=== PATIENT | male | born 1940 | race Caucasian/White ===

== ENCOUNTER → 2016-05-03 | Outpatient (CLI) | payer OTHER, MEDICARE | LOC: FIMAGING 15:54 | PROVIDERS: ATTEND Physician Assistant | DX: M12.88 Other specific arthropathies, not elsewhere classified, other specified site (principal); M50.322 Other cervical disc degeneration at C5-C6 level; M48.02 Spinal stenosis, cervical region; G95.29 Other cord compression; M99.71 Connective tissue and disc stenosis of intervertebral foramina of cervical region ==

== ENCOUNTER → 2016-12-29 | Outpatient (CLI) | payer OTHER, MEDICARE | LOC: FIMAGING 19:11 | PROVIDERS: ATTEND Physician Assistant | DX: M47.26 Other spondylosis with radiculopathy, lumbar region (principal); M48.061 Spinal stenosis, lumbar region without neurogenic claudication ==

== ENCOUNTER → 2017-08-13 | Outpatient (CLI) | payer OTHER, MEDICARE | LOC: FIMAGING 18:29 | PROVIDERS: ATTEND Physician Assistant | DX: M13.862 Other specified arthritis, left knee (principal); M23.332 Other meniscus derangements, other medial meniscus, left knee; M23.342 Other meniscus derangements, anterior horn of lateral meniscus, left knee; M23.352 Other meniscus derangements, posterior horn of lateral meniscus, left knee; M23.42 Loose body in knee, left knee; M23.8X2 Other internal derangements of left knee ==

== ENCOUNTER → 2018-02-18 | Outpatient (CLI) | payer OTHER, MEDICARE | LOC: FIMAGING 15:05 | PROVIDERS: ATTEND Orthopaedic Surgery | DX: Z01.818 Encounter for other preprocedural examination (principal); M17.12 Unilateral primary osteoarthritis, left knee | CPT/HCPCS: 36415-PO ==

== ENCOUNTER 2018-03-08 05:53 | Inpatient (IN) | payer OTHER, MEDICARE ==
[2018-03-08] MEDS ORDERED: ROPIVACAINE 0.2% 80 MG, EPINEPHrine 0.2 MG in SYRINGE 0 ML IU ONE (06:00)
[2018-03-08] MEDS ORDERED: TRANEXAMIC ACID 3,000 MG in NS (SYRINGE) 50 ML IRR ONE (06:00)
[2018-03-08] MEDS ORDERED: ceFAZolin 2 GM/DEXTROSE 100 ML IV ONE (06:02)
[2018-03-08] MEDS ORDERED: FAMOTIDINE 20 MG TAB PO ONE (06:02)
[2018-03-08] MEDS ORDERED: ACETAMINOPHEN 325 MG TAB PO ONE (06:02)
[2018-03-08] MEDS ORDERED: LR 1,000 ML IV ONE (06:03)
--- NOTE | 2018-03-08 06:24 | PDHPUP ---
History & Physical Update H&P update statement: This history and physical update is based on an assessment of the patient which was completed after admission or registration (within 24 hours), but prior to the surgery/procedure. H&P update: H&P reviewed & patient examined, no change in patient's condition since H&P completed
[2018-03-08] MEDS ORDERED: TRANEXAMIC ACID 3,000 MG/50 ML BAG IRR ONE (06:39)
--- NOTE | 2018-03-08 06:42 | PDANEPAE ---
ANE Past Medical History - Cardiovascular History Hx Hypertension: Yes Hx Arrhythmias: No Hx Chest Pain: No Hx Coronary Artery / Peripheral Vascular Disease: Yes Hx CHF / Valvular Disease: No Hx Palpitations: No Cardiovascular History Comment: stent placed after LA 2001 - Pulmonary History Hx COPD: No Hx Asthma/Reactive Airway Disease: No Hx Recent Upper Respiratory Infection: No Hx Oxygen in Use at Home: No Hx Sleep Apnea: No Sleep Apnea Screening Result - Last Documented: Positive - Neurologic History Hx Cerebrovascular Accident: No Hx Seizures: No Hx Dementia: No - Endocrine History Hx Diabetes: No Hypothyroid: No Hyperthyroid: No Obesity: yes, mild Endocrine History Comment: PRE-DIABETIC, NO MEDS - Renal History Hx Renal Disorders: No - Liver History Hx Hepatic Disorders: No - Neurological & Psychiatric Hx Hx Neurological and Psychiatric Disorders: Yes Neurological / Psychiatric History Comment: neck causes numbness to both hands - Cancer History Hx Cancer: No Cancer History Comment: pre-cancerous prostate - Congenital Disorder History Hx Congenital Disorders: Yes Congenital History Comment: malignant hyperthermia - GI History GERD: no Hx Gastrointestinal Disorders: No Gastrointestinal History Comment: colonoscopy polyp removed - Other Health History Other Health History: full dentures - Chronic Pain History Chronic Pain: Yes (neck) - Surgical History Prior Surgeries: prostate 2010. back injections ANE Review of Systems Review of Systems: - Exercise capacity Exercise capacity: limited by disability METS (RN): 4 METS ANE Patient History - Allergies Allergies/Adverse Reactions: No Known Allergies Allergy (Verified 03/08/18 06:04) - Home Medications Home Medications: Gabapentin [Neurontin 300 MG (*)] 300 mg PO DAILY 09/28/15 [Last Taken 03/07/18] Lisinopril/Hctz 20/12.5MG [Zestoretic/Prinzide 20/12.5MG (*)] 1 ea PO DAILY [Last Taken Unknown] Lovastatin 20 mg PO DAILY@18 09/28/15 [Last Taken 03/07/18] Metoprolol Tartrate [Lopressor 100 mg (*)] 100 mg PO BID 09/28/15 [Last Taken ] Acetaminophen [Tylenol ES 500 mg (*)] 1,000 mg PO Q6 PRN 02/15/18 [Last Taken ] Acetaminophen/Diphenhydramine [Acetaminophen Pm Caplet] 2 tab PO HS 02/15/18 [ Last Taken 03/07/18] Duloxetine HCl [Cymbalta] 30 mg PO BID 02/15/18 [Last Taken 03/07/18] Gabapentin [Neurontin 300 MG (*)] 600 mg PO HS 02/15/18 [Last Taken 03/07/18] amLODIPine BESYLATE [Amlodipine Besylate] 5 mg PO HS 02/15/18 [Last Taken ] - NPO status NPO Since - Liquids (Date): 03/07/18 NPO Since - Liquids (Time): 18:00 NPO Since - Solids (Date): 03/07/18 NPO Since - Solids (Time): 18:00 - Anes Hx Anes Hx: slow to awaken from anesthesia - Smoking Hx Smoking Status: Former smoker Marijuana use: No - Alcohol Use Alcohol Use: Occasionally - Family Anes Hx Family Anes Hx: malignant hyperthermia Family Hx Anesthesia Complications: as above ANE Labs/Vital Signs - Vital Signs Blood Pressure: 134/78 Heart Rate: 70 Respiratory Rate: 16 O2 Sat (%): 93 Height: 175.26 cm Weight: 90.718 kg ANE Physical Exam - Airway Neck exam: decreased ROM Mallampati Score: Class 3 Mouth exam: dentures - Pulmonary Pulmonary: no rales or rhonchi, reduced air movement - Cardiovascular Cardiovascular: regular rate and rhythym, no murmur, rub, or gallop (no carotid bruits) - ASA Status ASA Status: III ANE Anesthesia Plan Anesthesia Plan: MAC, spinal Total IV Anesthesia: No
[2018-03-08] MEDS ORDERED: MIDAZOLAM 2 MG/2 ML VIAL ONE (06:55)
[2018-03-08] MEDS ORDERED: fentaNYL 100 MCG/2 ML INJ ONE (06:57)
[2018-03-08] MEDS ORDERED: PROPOFOL/EMULSION 500 MG/50 ML BOTTLE IV ONE (06:57)
[2018-03-08] MEDS ORDERED: BUPIVACAINE/DEXTROSE 7.5MG/ML 2 ML SPINAL AMP SP ONE (06:58)
[2018-03-08] MEDS ORDERED: MIDAZOLAM 2 MG/2 ML VIAL IVP ONE (07:03)
[2018-03-08] MEDS ORDERED: ePHEDrine SULFATE 25 MG/5 ML SYR ONE ×2 (07:29→07:38)
[2018-03-08] MEDS ORDERED: PROMETHAZINE HCL 25 MG/ML INJ IVP PRN ×2 (07:38→08:45)
[2018-03-08] MEDS ORDERED: ONDANSETRON 4 MG/2 ML VIAL IVP PRN ×2 (07:38→08:45)
[2018-03-08] MEDS ORDERED: NS 500 ML IV PRN (07:38)
[2018-03-08] MEDS ORDERED: PHENYLEPHRINE HCL 100 MCG/ML SYR IVP PRN (07:38)
[2018-03-08] MEDS ORDERED: NALOXONE HCL 0.4 MG/ML INJ IVP PRN (07:38)
[2018-03-08] MEDS ORDERED: PHENYLEPHRINE HCL 100 MCG/ML SYR ONE (07:53)
[2018-03-08] MEDS ORDERED: ROPIVACAINE HCL 100 MG/20 ML INJ ONE (08:31)
[2018-03-08] MEDS ORDERED: BISACODYL 10 MG SUPP PR PRN (08:45)
[2018-03-08] MEDS ORDERED: LACTULOSE 20 GM/30 ML UDCUP PO PRN (08:45)
[2018-03-08] MEDS ORDERED: NS 1,000 ML IV SCH (08:45)
[2018-03-08] MEDS ORDERED: DIPHENOXYLATE/ATROPINE LOMOTIL 1 TAB PO PRN (08:45)
[2018-03-08] MEDS ORDERED: MAGNESIUM HYDROXIDE 30 ML UDCUP PO PRN (08:45)
[2018-03-08] MEDS ORDERED: ONDANSETRON DISINTEGRATING 4 MG TAB PO PRN (08:45)
[2018-03-08] MEDS ORDERED: METOCLOPRAMIDE 10 MG/2 ML VIAL IVP PRN (08:45)
[2018-03-08] MEDS ORDERED: diphenhydrAMINE 25 MG CAP PO PRN (08:45)
[2018-03-08] MEDS ORDERED: TEMAZEPAM 15 MG CAP PO PRN (08:45)
[2018-03-08] MEDS ORDERED: PROMETHAZINE HCL 25 MG SUPPR PR PRN (08:45)
[2018-03-08] MEDS ORDERED: POLYETHYLENE GLYCOL 3350 17 GM PKT PO PRN (08:45)
--- NOTE | 2018-03-08 08:45 | POSTOPPROG ---
Post Op Note Date of Operation: 03/08/18 Surgeon: Padmaja Soto [place] Supervisor: Prachi Soto and Gayle Reyna PA-C Anesthesiologist: Dr. Moses Anesthesia: Spinal, Other (Specify) (adductor canal block) Pre-op Diagnosis: left knee OA Post-op Diagnosis: same Indication: left knee pain Procedure: left TKA, robot assisted Findings: severe OA of left knee Inf/Abcess present in the surg proc area at time of surgery?: No EBL: 50-100
[2018-03-08] MEDS ORDERED: LR 1,000 ML IV SCH (09:00)
--- NOTE | 2018-03-08 09:48 | POSTANESTH ---
Post Anesthetic Evaluation Cardiovascular Status: Normal, Stable Respiratory Status: Normal, Stable Level of Consciousness/Mental Status: Can Participate in Eval Pain Control: Adequate, Prn Tx Ordered Nausea/Vomiting Control: Adequate, Prn Tx Ordered Complications Possibly Related to Anesthesia: None Noted
--- NOTE | 2018-03-08 10:09 | PDMN ---
Medical Necessity Medical [place] [facility]thro[place], Total: 77 yo s/p L TKA. Meets IP criteria for advanced age and comorbidities: HTN, CKD, CAD, hx [place] with stent , ASA III
[2018-03-08] MEDS: CYCLOBENZAPRINE 10 MG TAB PO PRN ×2 (11:15→20:31)
[2018-03-08] MEDS: ACETAMINOPHEN 325 MG TAB PO SCH ×2 (11:15→18:29)
[2018-03-08] MEDS: SENNOSIDES/DOCUSATE SODIUM TAB PO SCH ×2 (11:28→20:31)
[2018-03-08] MEDS: FAMOTIDINE 20 MG TAB PO SCH (11:28)
[2018-03-08] MEDS: oxyCODONE IR 5 MG TAB PO PRN ×4 (12:29→20:30)
[2018-03-08] MEDS: ceFAZolin 2 GM/DEXTROSE 100 ML IV SCH ×2 (15:34→22:52)
[2018-03-08] MEDS: ASPIRIN 81 MG CHEWABLE TAB PO SCH (20:28)
[2018-03-08] MEDS: amLODIPine BESYLATE 5 MG TAB PO SCH (20:28)
[2018-03-08] MEDS: GABAPENTIN 300 MG CAP PO SCH (20:29)
[2018-03-08] MEDS: DULoxetine 30 MG CAP PO SCH (20:29)
[2018-03-08] MEDS: METOPROLOL TARTRATE 100 MG TAB PO SCH (20:30)
[2018-03-09] MEDS: ACETAMINOPHEN 325 MG TAB PO SCH ×5 (00:15→18:33)
[2018-03-09] MEDS: oxyCODONE IR 5 MG TAB PO PRN ×4 (00:29→09:26)
[2018-03-09] MEDS: METOPROLOL TARTRATE 100 MG TAB PO SCH ×2 (09:24→21:24)
[2018-03-09] MEDS: ASPIRIN 81 MG CHEWABLE TAB PO SCH ×2 (09:25→21:23)
[2018-03-09] MEDS: FAMOTIDINE 20 MG TAB PO SCH (09:25)
[2018-03-09] MEDS: LISINOPRIL/HCTZ 20/12.5MG 1 EA TAB PO SCH (09:25)
[2018-03-09] MEDS: GABAPENTIN 300 MG CAP PO SCH ×2 (09:26→21:23)
[2018-03-09] MEDS: SENNOSIDES/DOCUSATE SODIUM TAB PO SCH ×2 (09:26→21:25)
[2018-03-09] MEDS: DULoxetine 30 MG CAP PO SCH ×2 (09:26→21:23)
--- NOTE | 2018-03-09 11:08 | SOAPPROG ---
SOAP Progress Note Assessment/Plan: Assessment: Patient is doing well POD 1 s/p LTKA. Pain management: pain is well controlled on oral pain meds. VTE ppx: recommend 81 mg aspirin morning and evening for 4 weeks, cont SANDRA and SCDs Anemia: level is expected initially postop. Asymptomatic. Continue to monitor D/c planning: Patient is stable, BP stable, pain well controlled. PT has concerns that pt. is not ready to go home yet- was only able to walk 60ft. with many breaks. Pt. does have help at home from . Will stay in hospital for 2nd night and likely d/c to home tomorrow. Plan: 03/09/18 11:05 Subjective: No nausea, vomiting, shortness of breath or chest pain. Pain well-controlled. Objective: Vital Signs Temp Pulse Resp BP Pulse Ox 36.8 C 93 18 155/97 H 85 L 03/09/18 07:53 03/09/18 07:53 03/09/18 07:53 03/09/18 07:53 03/09/18 09:29 Laboratory Results 03/09/18 04:48 03/09/18 04:48 03/08/18 03/09/18 03/10/18 05:59 05:59 05:59 Intake Total 1805 100 Output Total 1705 300 Balance 100 -200 LLE: incision dressing clean and dry, NVI, positive DF/PF ICD10 Worksheet Patient Problems: Problems Problem Status Onset Primary osteoarthritis of left knee Acute - ICD10 Problem Qualifiers (1) Primary osteoarthritis of left knee
[2018-03-09] MEDS ORDERED: PRAVASTATIN SODIUM 20 MG TAB PO SCH (18:00)
[2018-03-09] MEDS: CYCLOBENZAPRINE 10 MG TAB PO PRN (18:34)
[2018-03-09] MEDS: amLODIPine BESYLATE 5 MG TAB PO SCH (21:22)
--- NOTE | 2018-03-09 21:32 | GOP ---
DATE OF OPERATION: 03/08/2018 SURGEON: Hattie Soto MD BRIDGE ENGINEER: Prachi Soto, ANNA ANESTHESIA: Spinal. PREOPERATIVE DIAGNOSIS: Left knee osteoarthritis. POSTOPERATIVE DIAGNOSIS: Left knee osteoarthritis. PROCEDURE PERFORMED: Left total knee arthroplasty with computer navigation, robotic assist. FINDINGS: ESTIMATED BLOOD LOSS: 30 cc. INDICATIONS: The patient is a 77-year-old male with severe and progressive pain and deformity of the left knee unresponsive to conservative care. The risks and benefits of surgical intervention were e xplained in detail. DESCRIPTION OF PROCEDURE: The patient was brought to the operative room and placed on the table in t he supine position. Spinal anesthesia was induced without difficulty. A pneumatic tourniquet was appl ied about the left proximal thigh, and the leg was prepped and draped in a sterile fashion. The leg h older was applied. After exsanguination by elevation the tourniquet was inflated to 250 mmHg. Incision was made anterior medial from the tibial tuberosity to a point 2 cm proximal to the superior pole of the patella. Medial parapatellar arthrotomy was carried out from the superior pole of the pa tella and posteriorly in line with the fibers of the Type II VMO. The medial collateral ligament was elevated and the infrapatellar fat pad was resected. The patella was everted and the articular surface was excised. A 35 mm patellar button was placed. Attention was turned first to the distal aspect of the femur. After exposure of the femur, 2 half pi ns were placed for fixation of the femoral array. In a similar fashion, 2 pins were placed anteromed ial on the tibia for fixation of the tibial array. External land marking and registration of the hip center was performed without difficulty. Internal femoral and tibial registration was carried out w ithout difficulty and the femoral and tibial checkpoints were placed and verified for accuracy. Attention was turned to the femur. The foot print for the size 4 femoral component was cut with the saw using the [employer] robotic system and verified for accuracy against the CT based plan. In a similar f ashion, the saw was used to cut the footprint for the size 5 tibial component using the [employer] system an d verified for accuracy against the CT based plan. The tibial articular surface was excised without d ifficulty, followed by the intercondylar box cut. The knee was extended and the remnants of the medial and lateral meniscus were excised. The posterior capsule was injected with ropivacaine, epinephrine and Toradol. A size 5 tibial tray was positioned . Trial reduction was then carried out. There was excellent range of motion, alignment, and stability using the 5 x 9 mm polyethylene. All trials were then removed. The joint was thoroughly irrigated and carefully dried. The press-fit c omponents were implanted. The permanent 5 x 9 mm polyethylene was placed without difficulty. The tourniquet was deflated and all bleeders were coagulated. The wound was thoroughly irrigated and closed using interrupted sutures of 2-0 Vicryl for the joint capsule. The subcu was closed with 3-0 V icryl and the skin with 4-0 Monocryl. Dermabond and Steri-Strips were applied followed by a compress benny dressing. The patient was then moved from the operating room to the recovery room in good conditi on, having tolerated the procedure well. PATHOLOGY: Severe tricompartmental osteoarthritis. /[id number]/MODL
[2018-03-10] MEDS: ACETAMINOPHEN 325 MG TAB PO SCH ×3 (00:15→12:27)
[2018-03-10] MEDS: oxyCODONE IR 5 MG TAB PO PRN ×2 (00:17→10:08)
[2018-03-10] MEDS: CYCLOBENZAPRINE 10 MG TAB PO PRN (05:49)
[2018-03-10] MEDS: FAMOTIDINE 20 MG TAB PO SCH (09:08)
[2018-03-10] MEDS: SENNOSIDES/DOCUSATE SODIUM TAB PO SCH (09:08)
[2018-03-10] MEDS: METOPROLOL TARTRATE 100 MG TAB PO SCH (09:08)
[2018-03-10] MEDS: DULoxetine 30 MG CAP PO SCH (09:08)
[2018-03-10] MEDS: GABAPENTIN 300 MG CAP PO SCH (09:08)
[2018-03-10] MEDS: LISINOPRIL/HCTZ 20/12.5MG 1 EA TAB PO SCH (09:08)
[2018-03-10] MEDS: ASPIRIN 81 MG CHEWABLE TAB PO SCH (09:08)
[2018-03-10 12:36] VITALS: BP 119/72
--- NOTE | 2018-03-10 12:44 | SOAPPROG ---
[facility] Progress Note Assessment/Plan: Assessment: patient is doing well POD 2 s/p L TKA pain is well controlled on oral pain meds VTE ppx: recommend aspirin 81 mg BID for 4 weeks, SANDRA carney during the daytime D/c planning: patient has been released from PT. Has great support from and has scheduled outpatient PT sessions in one week. BP stable, patient was deconditioned prior to L TKA stating he could walk 1/2 block. HE lives in a wheelchair accessible apartment and does not believe they will have difficulty getting him to outpatient PT. Encouraged patient to call our office if issues arise prior to 3 week postop appt. They both understand. Safe for d/c to home today. Plan: 03/10/18 12:41 Subjective: pain is present, but patient feels capable of managing with oral pain meds, denies chest pain. Objective: Vital Signs Temp Pulse Resp BP Pulse Ox 36.6 C 78 17 119/72 92 03/10/18 12:00 03/10/18 12:00 03/10/18 12:00 03/10/18 12:00 03/10/18 12:00 Laboratory Results 03/10/18 04:48 03/09/18 04:48 03/09/18 03/10/18 03/11/18 05:59 05:59 05:59 Intake Total 1805 900 Output Total 1705 700 Balance 100 200 LLE: incsion dressing is clean and dry, NVI, +pf/df ICD10 Worksheet Patient Problems: Problems Problem Status Onset Primary osteoarthritis of left knee Acute
== END 2018-03-10 13:34 | disposition home or self-care (01) | DRG 470 ==
LOC: F3N 05:53 → OBSVTOIN 08:49 → F3N 09:38
PROVIDERS: ADMIT Orthopaedic Surgery; ATTEND Orthopaedic Surgery
DX: M17.12 Unilateral primary osteoarthritis, left knee (principal); I10 Essential (primary) hypertension; I25.2 Old myocardial infarction; G47.30 Sleep apnea, unspecified; R73.03 Prediabetes; Z95.5 Presence of coronary angioplasty implant and graft; Z87.891 Personal history of nicotine dependence
CPT/HCPCS: 97110-GP; 97116-GP; 97161-GP; 97530-GP; J0171; J0690; J2250; J2270; J2370; J2405; J2704; J2795; J3010

== ENCOUNTER → 2018-07-14 | Outpatient (CLI) | payer OTHER, MEDICARE | LOC: FIMAGING 13:39 ==